=== PATIENT | male | born 1930 | race Caucasian/White ===

== ENCOUNTER 2018-03-09 06:38 | Day surgery (SDC) | payer MEDICARE, OTHER ==
[~2018-03-09] VITALS: Ht 177.8 cm; Wt 77.0 kg
[~2018-03-09 06:38] MED LIST: AMLO5TAB2 PO; CHOL4PAC2 PO; ESOM10SU PO; ESOM20CA PO; FERR-46 PO; LOSA100T6 PO; LOVA20TA2 PO; OXYC-302 PO; PANT40TA5 PO; POLY17PO5 PO; VALS320T2 PO
[2018-03-09] MEDS ORDERED: LACTATED RINGERS 1,000 ML IV SCH (06:47)
[2018-03-09 07:13] VITALS: BP 145/72
[2018-03-09] MEDS ORDERED: EPINEPHRINE 1 MG/ML, 1ML ONE (08:25)
[2018-03-09] MEDS ORDERED: BUPIVACAINE/PF 0.5% ONE (08:25)
[2018-03-09] MEDS ORDERED: FENTANYL PF 100 MCG/2ML ONE ×2 (08:37→10:16)
[2018-03-09] MEDS ORDERED: DEXAMETHASONE 4 MG/ML, 1ML ONE (08:39)
[2018-03-09] MEDS ORDERED: CEFAZOLIN 1,000 MG ONE (08:39)
[2018-03-09] MEDS ORDERED: ONDANSETRON 2MG/ML, 2ML ONE (08:39)
[2018-03-09] MEDS ORDERED: LIDOCAINE-MPF 2% ,5ML ONE (08:39)
[2018-03-09] MEDS ORDERED: SUCCINYLCHOLINE 20 MG/ML, 10ML ONE (08:39)
[2018-03-09] MEDS ORDERED: PROPOFOL 10 MG/ML, 20ML ONE (08:39)
[2018-03-09] MEDS ORDERED: LABETALOL 5MG/ML, 20ML IV PRN (09:00)
[2018-03-09] MEDS ORDERED: ACETAMINOPHEN 325 MG TABLET PO PRN (09:00)
[2018-03-09] MEDS ORDERED: hydrALAzine 20 MG/ML, 1ML IV PRN (09:00)
[2018-03-09] MEDS ORDERED: MORPHINE SULFATE 4 MG/ML, 1ML IVPush PRN (09:00)
[2018-03-09] MEDS ORDERED: ONDANSETRON ODT 8 MG PO PRN (09:00)
[2018-03-09] MEDS ORDERED: HYDROcodone/APAP 7.5-325MG/15ML UDC PO PRN (09:00)
[2018-03-09] MEDS ORDERED: OXYcodone 5 MG/5 ML ORAL.SOL UDC PO PRN (09:00)
[2018-03-09] MEDS ORDERED: OXYcodone 5 MG/5 ML ORAL.SOL UDC ONE (10:16)
[2018-03-09] MEDS ORDERED: ACETAMINOPHEN 650 MG/20.3 ML UDC ONE (10:16)
[2018-03-09] MEDS: FENTANYL PF 100 MCG/2ML IV PRN ×3 (10:18→10:33)
== END 2018-03-09 12:40 ==
LOC: OUT 06:38
PROVIDERS: ATTEND Surgery
DX: K40.90 Unilateral inguinal hernia, without obstruction or gangrene, not specified as recurrent (principal); I10 Essential (primary) hypertension; K21.9 Gastro-esophageal reflux disease without esophagitis; Z90.49 Acquired absence of other specified parts of digestive tract
CPT/HCPCS: 49505; C1781; J0171; J0330; J0690; J1100; J2405; J2704; J3010; J3490; J7120